=== PATIENT | male | born 1985 | race African-American/Black ===

== ENCOUNTER 2021-08-24 22:37 | Emergency (ER) | payer SELFPAY ==
--- NOTE | 2021-08-24 23:08 | PC.NURSE ---
Called [facility] and spoke with Cassandra. Referral # [id number] Per Cassandra, declined all donations
[2021-08-24 23:09] VITALS: BMI 26.0
--- NOTE | 2021-08-24 23:22 | ED_ITS ---
HPI - CPR General Chief Complaint: Cardiac Arrest/CPR Stated Complaint: cardiac arrest Time Seen by Provider: 08/24/21 23:21 Source: EMS Mode of arrival: EMS Limitations: other (Unresponsive) History of Present Illness HPI narrative: Patient comes to the emergency room via EMS for cardiac arrest secondary to drug overdose. EMS states that they receive a phone call from 911, a female person called reporting an overdose. According to EMS, this female bystander, reported that the patient was seen well approximately at 20:30. Patient was found unresponsive by the bystander around 21:50. When EMS arrived, patient was unresponsive, no pulse, asystole, compressions were started by EMS at 21:50, patient was intubated in the field. Patient had received multiple epinephrine doses via IO. Patient was in asystole most of the time, for a few minutes patient was in PEA. EMS reports that as they were trying to get more information from the female bystander, she eloped the scene. We do not know the patient's name, EMS estimated that the patient is between 30-37 years old. EMS reports that they were several needles, syringes, and unused Narcan at the patient's residence Review of Systems Review of Systems: Yes Unobtainable due to mental condition PMFSH Past Medical History Source: unable to obtain Physical Exam Vital Signs: Vital Signs: BMI result Body Mass Index 26.0 Const: Other: Appearance: Unresponsive Eyes: Dilated, fixed, unresponsive to light ENT: Intubated, copious amount of vomit in the oropharynx Neck: Normal inspection. No crepitus CVS: Asystole, CPR in progress Respiratory: Patient intubated, being ventilated Abdomen: Soft and slightly distended Skin: Skin cold, no signs of trauma Extremities: No lower extremity edema. No Lacerations. No Rash, no signs of trauma Neuro: Unresponsive Psych: Unresponsive Course Course Course Narrative: Patient received several doses of epinephrine, most of the time patient was in asystole, occasionally patient was in PEA. A total amount of 50 minutes were spent in resuscitation efforts/CPR. Time of was called at 22:50 No family or friends reported to the emergency room Cause of likely overdose leading to cardiac arrest digital forensic examiner has been contacted, [facility] Gutier[facility] accepted the case, #[id number] [employer] and [place] police on board. Requesting to keep the body in the ED until their svp digital sales finishes taking pictures Discharge Plan Discharge Clinical Impression: Overdose, Cardiac arrest Patient Disposition: Date/Time: 08/24/21 22:50
--- NOTE | 2021-08-24 23:41 | PC.NURSE ---
call out to medical lab specialist at @[phone]
--- NOTE | 2021-08-24 23:47 | PC.NURSE ---
Per MD Vaughan, pt accepted by ME.
[2021-08-27 10:22] LABS: Glucose, Whole Blood 214 mg/dL (60-115)
== END 2021-08-25 02:13 | disposition expired ==
PROVIDERS: Emergency Provider Emergency Medicine
DX: T50.901A Poisoning by unspecified drugs, medicaments and biological substances, accidental (unintentional), initial encounter (principal); I46.8 Cardiac arrest due to other underlying condition; Y92.9 Unspecified place or not applicable
CPT/HCPCS: 82947; 96374; 96375; 99282; 99285; J0171; J0461